=== PATIENT | male | born 1985 | race Two or more races ===

== ENCOUNTER 2019-09-24 12:48 | Emergency (ER) | payer OTHER ==
[2019-09-24 13:01] VITALS: BP 126/95; PULSE 72; TEMP 98.5; BMI 24.3
--- NOTE | 2019-09-24 13:06 | PDOC ---
Suture Removal/Wound Check HPI - History of Present Illness Chief Complaint: Suture/Staple Removal(Here) Stated Complaint: STAPLE REMOVAL Time Seen by Provider: 09/24/19 12:54 History Source: Yes: Patient Exam Limitations: Yes: No Limitations Date of Last ED visit: 07/27/19 - Onset of Previous Treatment Comment:: 09/24/19 13:01 Pt is a 34 y/o male with a laceration to his occiput that he had placed on 07/27/19. He states he felt as if his nila were not ready to come out so he did not return in one week as he was told. He denies any past medical history of allergies to medicines. He states he did not return sooner because he felt his nila were not ready to come out. Past History - Medical History Allergies/Adverse Reactions: Allergies Allergy/AdvReac Type Severity Reaction Status Date / Time octopus Allergy Verified 07/27/19 03:50 Home Medications: Ambulatory Orders Bacitracin - [Bacitracin Topical Ointment -] 1 applic TP TID #1 tube 07/27/19 - Psycho-Social/Smoking History Smoking History: Never smoked *Review of Systems - Review of Systems 09/24/19 13:02 - Review of Systems Able to Perform ROS?: Yes Constitutional: No: Fever, Chills, Loss of Appetite, Night Sweats, Weakness HEENTM: No: Eye Pain, Vision changes, Ear Pain, Throat Pain, Throat Swelling, Mouth Pain, Difficulty Swallowing Respiratory: No: Cough, Shortness of Breath, Wheezing, Sputum Production Cardiac (ROS): No: Chest Pain, Chest Tightness, Palpitations, Irregular Heart Beat, Edema ABD/GI: No: Nausea, Vomiting, Abdominal Pain, Diarrhea : No Dysuria, No Hematuria, No Frequency, No Urgency Musculoskeletal: No: Muscle Pain, Back Pain, Joint Pain, Muscle Weakness, Neck Pain Integumentary: No: Lesions, Rash; occipital head laceration healed/staple removal Neurological: No: Headache, Numbness, Tingling, Weakness, Speech Difficulties *Physical Exam - Physical Exam 09/24/19 13:03 - Physical Exam General Appearance: Nourished, Appropriately Dressed, No Distress HEENT: EOMI, Normal Voice, No Rhinorrhea Neck: Supple, No Lymphadenopathy (R), No Lymphadenopathy (L), No Rigidity, No Decreased range of motion Respiratory/Chest: Lungs Clear, Normal Breath Sounds. No Respiratory Distress, No Accessory Muscle Use Cardiovascular: Regular Rhythm, Regular Rate, S1, S2 Gastrointestinal/Abdominal: Normal Bowel Sounds, Soft. Non-tender, No Guarding, No Rebound, No Rigidity Musculoskeletal: Normal Inspection. No Decreased Range of Motion Extremity: Normal Capillary Refill, Normal Inspection Integumentary: Normal Color, Dry. No Rash; nila intact to the occiput with a healed laceration. Therefore nila in place. There is no evidence of wound infection, wound dehiscence or other concerning skin pathology. No tenderness to palpation. 4 nila were removed without difficulty and patient tolerated the procedure well. Neurologic: public policy analyst II-XII NML intact, Fully Oriented, Alert, Normal Mood/Affect, Normal Response Medical Decision Making - Medical Decision Making 09/24/19 13:04 Assessment: Pt is a 34 y/o male who presents for staple removal to the occiput. Plan: 4 nila removed without incident from the occiput pt given wound care instructions He can follow-up with his primary doctor within 1 to 2 days for repeat evaluation. He understands and agrees with this treatment plan and the patient is stable for discharge. Discharge - Discharge Information Problems reviewed: Yes Clinical Impression/Diagnosis: Removal of staple Condition: Stable Disposition: HOME - Follow up/Referral - Patient Discharge Instructions Patient Printed Discharge Instructions: DI for Suture Removal Additional Instructions: Keep the wound clean. Wash daily with warm water and soap. - Post Discharge Activity
== END 2019-09-24 13:07 | disposition home or self-care (01) ==
LOC: JER 12:48
DX: S01.01XA Laceration without foreign body of scalp, initial encounter (principal); Z48.02 Encounter for removal of sutures
CPT/HCPCS: 99281-25